=== PATIENT | male | born 1960 | race Caucasian/White ===

== ENCOUNTER 2021-02-16 09:58 | Emergency (ER) | payer OTHER, MEDICAID, SELFPAY ==
[2021-02-16] VITALS (8 sets, daily range): BP systolic 104–142; BP diastolic 68–77; PULSE 71–85; RESP 18–26; TEMP 36.8; O2SAT 93–97; BMI 33.9
--- NOTE | 2021-02-16 10:06 | DI.RAD.S_ITS ---
PROCEDURE: XR CHEST 2V INDICATIONS: cough, wheezing throughtout, sob TECHNIQUE: 2 views of the chest were acquired. COMPARISON: [facility], , CHEST 2 VIEW, 03/02/2016, 11:30. [facility], , CHEST 2 VIEW, 11/09/2015, 10:01. FINDINGS: Surgical changes and devices: None. Lungs and pleura: Lungs are abnormal with pulmonary hyperexpansion consistent with severe COPD. No pleural effusions or pneumothorax. Mediastinum: Mediastinal contours are normal. Heart size is normal. Bones and chest wall: No suspicious bony abnormalities. Soft tissues appear unremarkable. IMPRESSION: Chronic interstitial prominence, severe COPD, presumed longstanding smoking history. No pneumonia found. Dictated by: Johny Mon M.D. on 02/16/2021 at 10:57 Approved by: Johny Mon M.D. on 02/16/2021 at 10:57
--- NOTE | 2021-02-16 10:21 | ED.SOB ---
HPI - SOB/Dyspnea General Chief Complaint: Upper Respiratory Symptoms Stated Complaint: COUGH, CONGESTION, SOB, STARTED IN OCTOBER Time Seen by Provider: 02/16/21 10:09 History of Present Illness HPI Narrative: Patient is a 60-year-old male with history of COPD who continues to smoke presenting with persistent cough shortness of breath ongoing since October. He is unable to get into his primary care provider. He says that his symptoms have not gotten any worse a just are not getting any better. He continues to have tightness a productive cough. He denies any fever or chills. He does have some chest tightness as well. Related Data Home Medications Medication Instructions Recorded Confirmed Albuterol Sulfate/Ipratropium* 2 puff TID #0 10/10/11 (Combivent Inhaler) Previous Rx's Medication Instructions Recorded azithromycin 250 mg tablet 250 mg PO DAILY 5 Days tab 02/16/21 prednisone 10 mg tablet 10 mg PO DAILY #30 tab 02/16/21 Allergies Allergy/AdvReac Type Severity Reaction Status Date / Time doxycycline Allergy Unknown REACTION Verified 02/16/21 10:42 WITH SHELLEY SANCHEZ Review of Systems Review of Systems Narrative: GENERAL: Denies chills, fatigue, malaise, fever, sweats, travel HEENT: Denies sinus pain, ear pain, sore throat, difficulty swallowing, neck pain RESPIRATORY:See HPI CARDIOVASCULAR: Denies chest pain, palpitations, orthopnea, edema GASTROINTESTINAL: Denies nausea, vomiting, abdominal pain, diarrhea, constipation, melena. : Denies dysuria, frequency, incontinence, hematuria, urinary retention, flank pain. MUSCULOSKELETAL: Denies weakness, joint pain, or bony pain SKIN: No rash, no erythema, no pruritus NEUROLOGIC: Denies weakness, dizziness, headache, numbness, change in speech, confusion PSYCHIATRIC: No concerning psychosocial issues. 12 point review of systems is negative except for those stated above and HPI Patient History Social History Smoking Status: Current every day smoker Exam Initial Vital Signs Initial Vital Signs: Vital Signs Temperature 98.2 F 02/16/21 10:18 Pulse Rate 85 02/16/21 10:18 Respiratory Rate 18 02/16/21 10:18 Blood Pressure 142/77 H 02/16/21 10:18 Pulse Oximetry 97 02/16/21 10:18 GENERAL: alert 60-year-old male HEENT: Head atraumatic,EOMI, pupils reactive, face symmetric, [moist] mucous membranes CARDIOVASCULAR: Regular rate and rhythm without murmurs, rubs or gallops. RESPIRATORY: Coarse breath bilaterally with wheezing speaks in full sentences no acute respiratory distress ABDOMEN: Soft, nontender. Normoactive bowel sounds all 4 quadrants. No guarding or rebound. EXTREMITIES: Normal range of motion, no clubbing or edema. Neurovascularly intact NEUROLOGICAL: Alert and oriented x4.Normal gait and speech. SKIN: Warm, dry, no laceration, no petechiae, no rashes or lesions. Course Orders Ordered: ED Orders 02/16/21 10:06 XR chest 2V Stat 02/16/21 10:11 COVID19 -Nasal swab/Pre-Proc Stat 02/16/21 10:18 EKG-12 Lead Stat 02/16/21 10:34 Complete Blood Count AUTO DIFF Stat Comprehensive Metabolic Panel Stat Lipase Stat NT-proBNP (BNP-Adult 18+) Stat Troponin & CK Cardiac Panel Stat Discontinued Medications Albuterol (Albuterol 2.5 Mg/3 Ml Neb (Adult)) 2.5 mg INH NOW ONE Stop: 02/16/21 11:08 Last Admin: 02/16/21 11:11 Dose: 2.5 mg Documented by: JOSUE Albuterol/Ipratropium (Albuterol/Ipratropium 3 Ml Ampul) 3 ml INH NOW ONE Stop: 02/16/21 10:19 Last Admin: 02/16/21 10:58 Dose: 3 ml Documented by: JOSUE Methylprednisolone (Methylprednisolone 125 Mg/2 Ml Vial) 125 mg IV NOW ONE Stop: 02/16/21 10:19 Last Admin: 02/16/21 10:43 Dose: 125 mg Documented by: VANESSA Vital Signs Vital signs: Vital Signs - 8 hr 02/16/21 10:18 02/16/21 10:23 02/16/21 10:30 Temperature 98.2 F Pulse Rate 85 82 78 Respiratory Rate 18 18 25 H Blood Pressure 142/77 H 118/77 Pulse Oximetry 97 97 94 02/16/21 10:59 02/16/21 11:00 02/16/21 11:30 Temperature Pulse Rate 81 84 71 Respiratory Rate 26 H 23 22 Blood Pressure 104/70 Pulse Oximetry 94 96 93 02/16/21 12:00 02/16/21 12:30 Temperature Pulse Rate 74 75 Respiratory Rate 19 20 Blood Pressure 112/68 128/75 Pulse Oximetry 94 93 MDM - SOB/Dyspnea Lab Data Result diagrams: 02/16/21 10:34 02/16/21 10:34 Labs: Lab Results 02/16/21 02/16/21 02/16/21 Range/Units 10:11 10:34 10:34 WBC 5.9 (4.5-11.0) X10^3/uL RBC 4.43 L (4.5-5.9) X10^6/uL Hgb 15.1 (13.5-17.5) g/dL Hct 43.6 (41-53) % MCV 98.5 (80-100) fL MCH 34.0 (26-34) PG MCHC 34.5 (30-36) % RDW 13.0 (11.6-14.8) % Plt Count 260 (150-400) X10^3/uL Neut % (Auto) 52.1 (50-75) % Lymph % (Auto) 30.9 (25-40) % [place] % (Auto) 12.0 (3-14) % Eos % (Auto) 3.9 (2-4) % Baso % (Auto) 1.1 (0-2) % Neut # (Auto) 3100 (8992-3996) /uL Lymph # (Auto) 1800 (2797-5005) /uL Livingston # (Auto) 700 (0-900) /uL Eos # (Auto) 200 (0-450) /uL Baso # (Auto) 100 (0-100) /uL Sodium 135 L (137-145) mmol/L Potassium 4.8 (3.4-5.1) mmol/L Chloride 105 (98-107) mmol/L Carbon Dioxide 25 (22-32) mmol/L BUN 7 L (9-20) mg/dL Creatinine 0.70 (0.66-1.25) mg/dL Estimated GFR > 60.0 (>60) mL/min BUN/Creatinine Ratio 10.0 (6-22) Glucose 102 (80-110) mg/dL Calcium 9.3 (8.4-10.2) mg/dL Total Bilirubin 0.8 (0.2-1.3) mg/dL AST 32 (17-59) IU/L ALT 23 (<50) IU/L Alkaline Phosphatase 76 (38-126) U/L Total Creatine Kinase 216 H (55-170) U/L CK-MB (CK-2) 3.86 H (<2.37) ng/mL CK-MB (CK-2) Rel Index 1.8 (1.5-5.0) % Troponin I < 0.012 (0.01-0.034) ng/mL NT-Pro-B Natriuret Pep 109 (<125) pg/mL Total Protein 7.5 (6.3-8.2) g/dL Albumin 4.3 (3.5-5.0) g/dL Globulin 3.2 (1.7-4.1) g/dL Albumin/Globulin Ratio 1.3 (1.0-2.8) Lipase 86 (23-300) U/L SARS-CoV-2 (PCR) Negative (Negative) Imaging Data Chest x-ray: Radiologist's Impression: PROCEDURE: XR CHEST 2V INDICATIONS: cough, wheezing throughtout, sob TECHNIQUE: 2 views of the chest were acquired. COMPARISON: [facility], , CHEST 2 VIEW, 03/02/2016, 11:30. [facility], , CHEST 2 VIEW, 11/09/2015, 10:01. FINDINGS: Surgical changes and devices: None. Lungs and pleura: Lungs are abnormal with pulmonary hyperexpansion consistent with severe COPD. No pleural effusions or pneumothorax. Mediastinum: Mediastinal contours are normal. Heart size is normal. Bones and chest wall: No suspicious bony abnormalities. Soft tissues appear unremarkable. IMPRESSION: Chronic interstitial prominence, severe COPD, presumed longstanding smoking history. No pneumonia found. Dictated by: Johny Mon M.D. on 02/16/2021 at 10:57 ECG Data Interpretation: Normal sinus rhythm rate 76 p.r. interval 154 QRS [address] changes or T-wave inversions similar to prior EKG MDM Narrative Medical decision making narrative: Patient is overall feeling much better after DuoNebs and steroids. At this time does not need admission. Will put him on steroid taper and antibiotics. He is allergic to doxycycline so will put him on azithromycin. Overall does not appear septic. Discharge Plan Departure Patient Disposition: Home Clinical Impression: COPD exacerbation Instructions: Chronic Obstructive Pulmonary Disease Activity Restrictions/Additional Instructions: *You have been diagnosed with copd exacerbation *What to do: Hopefully start feeling better with steroids and antibiotics *Continue to take medications as directed Prednisone 40 mg for 3 days, 30 mg for 3 days, 20 mg for 3 days, 10 mg for 3 days Azithromycin take as directed *Follow up with your primary care provider in 2-3 days *Return to ER if you should have increasing shortness of breath, chest pain or any new, worsening or concerning symptoms Prescriptions: New prednisone 10 mg tablet 10 mg PO DAILY Qty: 30 RF: 0 azithromycin 250 mg tablet 250 mg PO DAILY 5 Days RF: 0 No Action Albuterol Sulfate/Ipratropium* (Combivent Inhaler) 2 puff TID Qty: 0 RF: 0 Referrals: Lidya Samson DO [Primary Care Provider] -
[2021-02-16 10:31] LABS: COVID19 -Nasal RAPID Negative (Negative)
[2021-02-16] MEDS: methylPREDNISolone 125 MG/2 ML VIAL IV (10:43)
[2021-02-16 10:52] LABS: Add Manual Diff / Slide Review NO; Basophils Absolute Auto 100 /uL (0-100); Basophils Percent Auto 1.1 % (0-2); Eosinophils Absolute Auto 200 /uL (0-450); Eosinophils Percent Auto 3.9 % (2-4); Hematocrit 43.6 % (41-53); Hemoglobin 15.1 g/dL (13.5-17.5); Lymphocytes Absolute Auto 1800 /uL (1100-4500); Lymphocytes Percent Auto 30.9 % (25-40); Mean Corpuscular HGB Conc 34.5 % (30-36); Mean Corpuscular Volume 98.5 fL (80-100); Monocytes Absolute Auto 700 /uL (0-900); Neutrophils Absolute Auto 3100 /uL (1500-7000); Neutrophils Percent Auto 52.1 % (50-75); Platelet Count 260 X10^3/uL (150-400); Red Blood Cell Count 4.43 X10^6/uL (4.5-5.9); White Blood Cell Count 5.9 X10^3/uL (4.5-11.0)
[2021-02-16 10:57] LABS: Alanine Aminotransferase 23 IU/L (<50); Albumin 4.3 g/dL (3.5-5.0); Albumin Globulin Ratio 1.3 (1.0-2.8); Alkaline Phosphatase 76 U/L (38-126); Aspartate Aminotransferase 32 IU/L (17-59); Bilirubin Total 0.8 mg/dL (0.2-1.3); Blood Urea Nitrogen 7 mg/dL (9-20); Calcium 9.3 mg/dL (8.4-10.2); Carbon Dioxide 25 mmol/L (22-32); Chloride 105 mmol/L (98-107); Creatine Kinase 216 U/L (55-170); Estimated Glomerular Filt Rate > 60.0 mL/min (>60); Globulin 3.2 g/dL (1.7-4.1); Glucose 102 mg/dL (80-110); Lipase 86 U/L (23-300); Potassium 4.8 mmol/L (3.4-5.1); Sodium 135 mmol/L (137-145); Total Protein 7.5 g/dL (6.3-8.2)
[2021-02-16 10:58] LABS: HEMOLYSIS 28 (0-50)
[2021-02-16] MEDS: ALBUTEROL/IPRATROPIUM 3 ML AMPUL INH (10:58)
[2021-02-16 11:09] LABS: NT-proBNP (BNP-Adult 18+) 109 pg/mL (<125); Troponin I < 0.012 ng/mL (0.01-0.034)
[2021-02-16] MEDS: ALBUTEROL 2.5 MG/3 ML NEB (ADULT) INH (11:11)
[2021-02-16 11:13] LABS: CKMB % Relative Index 1.8 % (1.5-5.0); Creatine Kinase MB 3.86 ng/mL (<2.37)
== END 2021-02-16 12:43 | disposition home or self-care (01) ==
PROVIDERS: Emergency Provider Emergency Medicine; Family Provider Family Medicine; PCP Family Medicine
DX: R06.02 Shortness of breath (principal); J44.1 Chronic obstructive pulmonary disease with (acute) exacerbation; Z20.822 Contact with and (suspected) exposure to COVID-19
CPT/HCPCS: 36415; 71046; 80053; 82550; 82553; 83690; 83880; 84484; 85025; 87635; 93005; 94640; 96374; 99284; C9803; J2930; J7613

== ENCOUNTER → 2023-03-23 16:51 | Outpatient (CLI) | payer OTHER, MEDICAID, SELFPAY ==
--- NOTE | 2023-03-23 16:54 | DI.RAD.S_ITS ---
PROCEDURE: XR CHEST 2V INDICATIONS: COPD TECHNIQUE: 2 views of the chest were acquired. COMPARISON: [facility], , XR CHEST 2V, 02/16/2021, 10:05. FINDINGS: Surgical changes and devices: None. Lungs and pleura: Lungs are clear. No pleural effusions or pneumothorax. Mediastinum: Mediastinal contours are normal. Heart size is normal. Bones and chest wall: No suspicious bony abnormalities. Soft tissues appear unremarkable. IMPRESSION: No acute disease Approved by: Janny Hoyt M.D. on 03/24/2023 at 10:45
[2023-03-23 17:22] LABS: Hematocrit 37.5 % (41-53); Hemoglobin 13.1 g/dL (13.5-17.5); Mean Corpuscular HGB Conc 34.8 % (30-36); Mean Corpuscular Hemoglobin 34.6 PG (26-34); Mean Corpuscular Volume 99.2 fL (80-100); Platelet Count 238 X10^3/uL (150-400); Red Blood Cell Count 3.77 X10^6/uL (4.5-5.9); Red Cell Distribution Width 12.1 % (11.6-14.8); White Blood Cell Count 5.3 X10^3/uL (4.5-11.0)
[2023-03-23 19:20] LABS: TSH w/ Reflex to FT4 2.41 uIU/mL (0.47-4.68)
[2023-03-23 20:11] LABS: Alanine Aminotransferase 42 IU/L (<50); Albumin 4.5 g/dL (3.5-5.0); Albumin Globulin Ratio 1.5 (1.0-2.8); Alkaline Phosphatase 63 U/L (38-126); Aspartate Aminotransferase 60 IU/L (17-59); BUN Creatinine Ratio 18.6 (6-22); Bilirubin Total 0.7 mg/dL (0.2-1.3); Blood Urea Nitrogen 16 mg/dL (9-20); Calcium 9.1 mg/dL (8.4-10.2); Carbon Dioxide 24 mmol/L (22-32); Chloride 102 mmol/L (98-107); Estimated Glomerular Filt Rate > 60 mL/min (>60); Glucose 95 mg/dL (80-110); HEMOLYSIS < 15 (0-50); Lipase 137 U/L (23-300); Potassium 4.4 mmol/L (3.4-5.1); Sodium 134 mmol/L (137-145); Total Protein 7.5 g/dL (6.3-8.2)
== END ==
PROVIDERS: Family Provider Family Medicine; PCP Internal Medicine; Referring Provider Internal Medicine; Visit Provider Internal Medicine
DX: J44.9 Chronic obstructive pulmonary disease, unspecified (principal); E78.2 Mixed hyperlipidemia; K52.9 Noninfective gastroenteritis and colitis, unspecified
CPT/HCPCS: 36415; 71046; 80053; 83690; 84443; 85027

== ENCOUNTER → 2023-03-25 10:35 | Outpatient (CLI) | payer OTHER, MEDICAID, SELFPAY ==
[2023-03-26 19:23] LABS: C difficie Toxins A and B, EIA Negative (Negative)
[2023-03-30 16:17] LABS: Calprotectin, Stool 7 ug/g (0-120)
== END ==
PROVIDERS: Family Provider Family Medicine; PCP Internal Medicine; Referring Provider Internal Medicine; Visit Provider Internal Medicine
DX: E78.2 Mixed hyperlipidemia (principal); K52.9 Noninfective gastroenteritis and colitis, unspecified
CPT/HCPCS: 83993; 87045; 87177; 87324; 87329; 87899

== ENCOUNTER → 2023-04-06 12:39 | Outpatient (CLI) | payer OTHER, MEDICAID, SELFPAY | PROVIDERS: Family Provider Family Medicine; PCP Internal Medicine; Referring Provider Internal Medicine; Visit Provider Internal Medicine | DX: J44.9 Chronic obstructive pulmonary disease, unspecified (principal); F17.200 Nicotine dependence, unspecified, uncomplicated | CPT/HCPCS: 94060; 94726; 94729 ==

== ENCOUNTER → 2023-05-24 11:56 | Outpatient (CLI) | payer OTHER, MEDICAID, SELFPAY ==
[2023-05-24 13:58] LABS: Hematocrit 37.7 % (41-53); Hemoglobin 13.1 g/dL (13.5-17.5); Mean Corpuscular HGB Conc 34.8 % (30-36); Mean Corpuscular Hemoglobin 34.1 PG (26-34); Platelet Count 256 X10^3/uL (150-400); Red Blood Cell Count 3.85 X10^6/uL (4.5-5.9); Red Cell Distribution Width 11.8 % (11.6-14.8); White Blood Cell Count 5.2 X10^3/uL (4.5-11.0)
[2023-05-24 14:49] LABS: HEMOLYSIS < 15 (0-50); Iron 159 ug/dL (49-181)
[2023-05-24 14:59] LABS: Percent Iron Saturation 42 % (20-50); Total Iron Binding Capacity 383 ug/dL (261-462); Transferrin 270 mg/dL (206-381)
[2023-05-24 15:18] LABS: Ferritin 77 ng/mL (18-464)
== END ==
PROVIDERS: Family Provider Family Medicine; PCP Internal Medicine; Referring Provider Internal Medicine; Visit Provider Internal Medicine
DX: D64.9 Anemia, unspecified (principal)
CPT/HCPCS: 36415; 82728; 83540; 83550; 85027

== ENCOUNTER 2023-06-07 11:50 | Day surgery (SDC) | payer OTHER, MEDICAID, SELFPAY ==
--- NOTE | 2023-06-07 | PATH_ITS ---
[facility] Accession Number: [id number] No. of containers..02 Tissue . 01 Material submitted: . PART A: colon - RANDOM COLON PART B: colon - DESCENDING COLON POLYP . 01 Diagnosis: A. Random Colon, Biopsies: Colonic mucosa with no diagnostic abnormality. Negative for active, chronic, and microscopic colitis. Negative for dysplasia and malignancy. . B. Descending Colon, Polyp: Tubular adenoma. MRV 06/14/2023 1359 Local . 01 Electronically signed: . Linda Olivares MD, Pathologist NPI- [id number] . 01 Gross description: . Part A: RANDOM COLON: Received in formalin is multiple fragment(s) of pulliam, soft tissue measuring 1.0 x 0.6 x 0.1 cm in aggregate submitted entirely in 1 cassette(s) Part B: DESCENDING COLON POLYP: Received in formalin is 1 fragment(s) of pulliam, soft tissue measuring 0.4 x 0.3 x 0.2 cm submitted entirely in 1 cassette(s) /AAY 06/08/2023 0341 Local . 01 Pathologist provided ICD-10: D12.4 . 01 CPT . 887516, [id number] Specimen Comment: A courtesy copy of this report has been sent to [phone] Performed at: 01 [facility] [address] [place] [address], [place], [place] [id number] MD Fernando Moreno MD Phone: [phone]
[2023-06-07] MEDS: LACTATED RINGERS 1,000 ML 42 ML IV (12:27)
[2023-06-07 12:29] VITALS: BP 156/98; PULSE 74; RESP 16; TEMP 36.5; O2SAT 98; BMI 34.2
--- NOTE | 2023-06-07 12:40 | PM.HP.1 ---
History of Present Illness History of Present Illness Date Patient Seen: 06/07/23 Chief complaint: Dx Colonoscopy w/poss bx Narrative: 62-year-old man last colonoscopy perhaps 5 years ago. Here today for diagnostic colonoscopy is secondary to chronic nonbloody diarrhea for several months. He thinks that his mother might have had colon cancer. [facility] Medical History Plantar warts Eczema Shoulder pain Foot pain Measles (~1967) History of urinary incontinence Irritable bowel syndrome Prurigo nodularis History of alcohol use disorder Tobacco use disorder Cervical spinal stenosis Chronic low back pain Obesity (BMI 30.0-34.9) History of colonic polyps Chronic diarrhea COPD (chronic obstructive pulmonary disease) Mixed hyperlipidemia Family History Father Cancer Mother Cancer Brother Cancer Brother Cancer Sister Eczema Social History details: Single, no children, recycling work household members: none Smoking Status: Never smoker alcohol intake: current Meds Home Medications and Allergies Home Medications Medication Instructions Recorded Confirmed Type atorvastatin 20 mg tablet 20 mg PO DAILY 03/23/23 06/07/23 History torsemide 20 mg tablet 20 mg PO DAILY 03/23/23 06/07/23 History albuterol sulfate 90 mcg/actuation 1 puff inhalation Q4-6H PRN 05/24/23 06/07/23 Rx aerosol inhaler shortness of breath or wheezing #8.5 grams fluticasone 250 mcg-salmeterol 50 1 inh inhalation BID #60 ea 05/24/23 06/07/23 Rx mcg/dose blistr powdr for inhalation (Advair Diskus) ipratropium 0.5 mg-albuterol 3 mg 3 ml inhalation 4XD wheezing #180 05/24/23 06/07/23 Rx (2.5 mg base)/3 mL nebulization mL soln ipratropium 20 mcg-albuterol 100 1 - 2 puff inhalation 4XD #4 grams 05/24/23 06/07/23 Rx mcg/actuation mist for inhalation (Combivent Respimat) Allergies Allergy/AdvReac Type Severity Reaction Status Date / Time doxycycline AdvReac Unknown REACTION Verified 06/07/23 12:23 WITH SUN, RASH Exam Vital Signs (past 8 hours): - 06/07/23 12:29 Temperature 97.7 F Pulse Rate 74 Respiratory Rate 16 Blood Pressure 156/98 H Pulse Oximetry 98 Oxygen Delivery Method Room Air Oxygen Delivery Method Room Air Narrative Exam Narrative: General adult man alert oriented no acute distress Chest nonlabored respiration Extremities warm well perfused Assessment & Plan Assessment and plan (1) Chronic diarrhea: Status: Acute Assessment & Plan narrative: 62-year-old man with chronic diarrhea here for diagnostic colonoscopy. Technical details were discussed. Risks, benefits, alternatives explained. Risks including but not limited to myocardial infarction, aspiration, bleeding, pain, missed lesion, incomplete examination, need for further radiographic studies, colonic perforation, and need for major abdominal surgery were discussed. All questions were answered to their satisfaction, and they are in agreement with this plan.
[2023-06-07 13:06] VITALS: BP 147/81; PULSE 89; RESP 15; TEMP 36.3; O2SAT 91
--- NOTE | 2023-06-07 13:10 | SUR.PHASEI ---
Patient arrived with oral airway in which he was drowsily attempting to remove. Bloody drainage noted on face and pillow but no active bleeding. Airway removed, patient cleaned.
[2023-06-07 13:11] VITALS: BP 118/71; PULSE 86; RESP 14; O2SAT 95
--- NOTE | 2023-06-07 13:12 | P.OP.COLON_ITS ---
Operative Date/Time/Diagnoses Date of procedure: 06/07/23 Time of procedure: 13:12 Pre-op diagnosis: Chronic diarrhea Procedure & Clinicians Study performed: Colonoscopy Same procedure as scheduled: Yes Indications: 62-year-old man with chronic diarrhea here for diagnostic colonoscopy Surgeon: Sorin Woody Procedure Notes Procedure in detail: The history and physical was performed/updated and the patient is ASA class is 2. The procedure was discussed in detail with the patient. Potential risks complications including infection, bleeding, missed diagnosis, perforation, need for surgery, and were explained. Their questions were answered and informed consent was obtained. Patient was brought to the procedure room and placed standard monitoring equipment. The patient's vital signs were monitored continuously throughout the entire procedure. Prior to starting time-out was performed. The patient was placed in the left lateral recumbent position. Procedural sedation was administered by anesthesia. Examination began with a thorough inspection of the perianal area there was no evidence of fissures, fistulae, external hemorrhoids or cutaneous malignancy. The colonoscopy scope was then placed into the anal canal and was advanced to the cecum, which was identified by the ileocecal valve, the appendiceal orifice and the confluence of the taenia. The scope was then slowly withdrawn examining colon thoroughly in all directions, irrigating it of any residual stool. The scope was retroflexed within the rectum The patient tolerated the procedure well. They will be discharged once criteria are met. The prep was of fair quality. The withdrawl time was 8 minutes. FINDINGS * Entirety of colon contains thick green bubbly content which is sent for culture * Descending colon-5 mm polyp removed with biopsy forceps Specimen(s): other (Colonic aspirate, descending colonic polyp) Impression: Colonic polyp Post-procedure Plan for aftercare: Will notify with results of culture and biopsy Disposition: same day surgery
[2023-06-07 13:15] VITALS: BP 127/69; PULSE 80; RESP 16; TEMP 36.4; O2SAT 96
[2023-06-07 13:18] VITALS: BP 127/69; PULSE 79; RESP 14; O2SAT 96
[2023-06-07 13:30] VITALS: BP 128/72; PULSE 72; RESP 16; O2SAT 99
--- NOTE | 2023-06-07 13:37 | SUR.PHASEII ---
Pt has to wait on his ride to get here. He is going to be a bit late. Pt is ready to go home and is just waiting on ride. Pt denies pain and nausea.
== END 2023-06-07 13:50 | disposition home or self-care (01) ==
PROVIDERS: Family Provider Family Medicine; PCP Internal Medicine; Referring Provider Surgery; Visit Provider Surgery
PROC: 0DJD8ZZ Inspection of Lower Intestinal Tract, Via Natural or Artificial Opening Endoscopic (ICD-10-PCS; CPT 45378; principal; 2023-06-07 13:30)
DX: R19.7 Diarrhea, unspecified (principal); D12.4 Benign neoplasm of descending colon
CPT/HCPCS: 45380; 87177; J2704

== ENCOUNTER → 2023-09-05 11:05 | Outpatient (CLI) | payer OTHER, MEDICAID, SELFPAY ==
[2023-09-05 12:41] LABS: Hematocrit 38.9 % (41-53); Hemoglobin 13.6 g/dL (13.5-17.5); Mean Corpuscular Hemoglobin 34.8 PG (26-34); Mean Corpuscular Volume 99.6 fL (80-100); Platelet Count 275 X10^3/uL (150-400); Red Blood Cell Count 3.91 X10^6/uL (4.5-5.9); Red Cell Distribution Width 12.7 % (11.6-14.8); White Blood Cell Count 5.1 X10^3/uL (4.5-11.0)
[2023-09-05 13:38] LABS: Alanine Aminotransferase 22 IU/L (<50); Albumin 4.4 g/dL (3.5-5.0); Albumin Globulin Ratio 1.4 (1.0-2.8); Alkaline Phosphatase 58 U/L (38-126); Aspartate Aminotransferase 28 IU/L (17-59); BUN Creatinine Ratio 10.7 (6-22); Bilirubin Total 0.8 mg/dL (0.2-1.3); Blood Urea Nitrogen 9 mg/dL (9-20); Calcium 9.6 mg/dL (8.4-10.2); Carbon Dioxide 28 mmol/L (22-32); Chloride 101 mmol/L (98-107); Cholesterol 212 mg/dL (140-199); Estimated Glomerular Filt Rate > 60 mL/min (>60); Globulin 3.1 g/dL (1.7-4.1); Glucose 95 mg/dL (80-110); HDL Cholesterol 42 mg/dL (40-60); HEMOLYSIS < 15 (0-50); LDL Cholesterol Calculated 109 mg/dL (<100); Potassium 4.2 mmol/L (3.4-5.1); Sodium 136 mmol/L (137-145); Total Protein 7.5 g/dL (6.3-8.2); Triglycerides 307 mg/dL (35-150)
[2023-09-05 14:07] LABS: Prostate Specific Antigen Scrn 0.446 ng/mL (0.1-4.0)
[2023-09-05 14:25] LABS: Vitamin B12 342 pg/mL (239-931)
== END ==
PROVIDERS: Family Provider Family Medicine; PCP Internal Medicine; Referring Provider Internal Medicine; Visit Provider Internal Medicine
DX: I10 Essential (primary) hypertension (principal); D64.9 Anemia, unspecified; E78.2 Mixed hyperlipidemia; E53.8 Deficiency of other specified B group vitamins; Z12.5 Encounter for screening for malignant neoplasm of prostate
CPT/HCPCS: 36415; 80053; 80061; 82607; 85027; G0103

== ENCOUNTER → 2024-10-22 13:47 | Outpatient (CLI) | payer MEDICARE, OTHER, SELFPAY ==
[2024-10-22 14:25] LABS: Hematocrit 39.8 % (41-53); Hemoglobin 13.7 g/dL (13.5-17.5); Mean Corpuscular HGB Conc 34.4 % (30-36); Mean Corpuscular Hemoglobin 33.7 PG (26-34); Platelet Count 273 X10^3/uL (150-400); Red Blood Cell Count 4.06 X10^6/uL (4.5-5.9); Red Cell Distribution Width 12.2 % (11.6-14.8); White Blood Cell Count 5.5 X10^3/uL (4.5-11.0)
[2024-10-22 14:41] LABS: Alanine Aminotransferase 37 IU/L (<50); Albumin 4.6 g/dL (3.5-5.0); Albumin Globulin Ratio 1.6 (1.0-2.8); Alkaline Phosphatase 63 U/L (38-126); Aspartate Aminotransferase 40 IU/L (17-59); BUN Creatinine Ratio 15.3 (6-22); Bilirubin Total 0.5 mg/dL (0.2-1.3); Blood Urea Nitrogen 15 mg/dL (9-20); Carbon Dioxide 30 mmol/L (22-32); Chloride 101 mmol/L (98-107); Cholesterol 260 mg/dL (140-199); Estimated Glomerular Filt Rate > 60 mL/min (>60); Globulin 2.8 g/dL (1.7-4.1); Glucose 105 mg/dL (80-110); HDL Cholesterol 54 mg/dL (40-60); HEMOLYSIS < 15 (0-50); LDL Cholesterol Calculated 151 mg/dL (<100); Sodium 137 mmol/L (137-145); Total Protein 7.4 g/dL (6.3-8.2); Triglycerides 275 mg/dL (35-150)
[2024-10-22 14:42] LABS: Potassium 5.5 mmol/L (3.4-5.1)
[2024-10-22 15:12] LABS: Prostate Specific Antigen 0.354 ng/mL (0.10-4.00)
[2024-10-22 15:13] LABS: TSH w/ Reflex to FT4 2.11 uIU/mL (0.47-4.68)
[2024-10-22 15:31] LABS: Vitamin B12 Reflex MMA if <400 275 pg/mL (239-931)
== END ==
PROVIDERS: PCP Internal Medicine; Referring Provider Internal Medicine; Visit Provider Internal Medicine
DX: N13.8 Other obstructive and reflux uropathy (principal); E78.2 Mixed hyperlipidemia; N40.1 Benign prostatic hyperplasia with lower urinary tract symptoms; I10 Essential (primary) hypertension; K52.9 Noninfective gastroenteritis and colitis, unspecified; E53.8 Deficiency of other specified B group vitamins
CPT/HCPCS: 36415; 80053; 80061; 82607; 83921; 84153; 84443; 85027

== ENCOUNTER 2025-01-27 10:21 | Emergency (ER) | payer MEDICARE, MEDICAID, SELFPAY ==
[2025-01-27] VITALS (9 sets, daily range): BP systolic 153–155; BP diastolic 72–92; PULSE 88–106; RESP 18–20; TEMP 36.8; O2SAT 95–98; BMI 40.4
--- NOTE | 2025-01-27 10:31 | DI.RAD.S_ITS ---
PROCEDURE: XR ANKLE LT MIN 3V INDICATIONS: injury TECHNIQUE: 3 views of the ankle were acquired. COMPARISON: None. FINDINGS AND IMPRESSION: Fracture dislocation of the ankle, with moderately displaced lateral malleolus fracture at and above the syndesmosis, medial malleolus fracture, minimally displaced posterior malleolus fracture. Significant medial gutter widening and mild syndesmotic widening. Diffuse soft tissue swelling. Plantar and calcaneal enthesopathy Dictated by: Ruddy Thompson M.D. on 01/27/2025 at 11:08 Approved by: Ruddy Thompson M.D. on 01/27/2025 at 11:09
--- NOTE | 2025-01-27 10:46 | PC.NURSE ---
Pt states he swung his leg over to get out of bed and states it got caught up on bedside table and pt tripped from this stating right arm hit wall and left ankle got twisted up. Reports left ankle pain and hearing crunching in left ankle. Left ankle appears edematous; pt reports he retains fluid in his lower extremities (compression socks in place). Pedal pulses 2+. 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
--- NOTE | 2025-01-27 12:13 | PM.HP.IH.1 ---
History of Present Illness History of Present Illness Date Patient Seen: 01/27/25 Date of Onset of Symptoms: 01/27/25 Chief complaint: L Ankle Injury Narrative: 64yo M with PMH of COPD, HTN, HLD, Obesity, Diverticulitis, and cervical spine stenosis who presents to the ED with acute LEFT ankle pain. He reports that he was attempting to get out of bed and got his foot caught on a side table. He twisted his ankle and fell to the ground. He had immediate pain and deformity of the ankle. He was unable to ambulate. He was brought in by ambulence by his brother. No prior injuries to this ankle. He did have a recent procedure on his toe nails. SInce that procedure he has had dullness about the foot. [facility] Medical History (Updated 01/27/25 @ 14:15 by Suellen Issa MD) Venous (peripheral) insufficiency Ingrown toenail Essential tremor Anemia Essential hypertension Plantar warts Eczema Measles (~1966) History of urinary incontinence Irritable bowel syndrome Prurigo nodularis History of alcohol use disorder Tobacco use disorder Cervical spinal stenosis Chronic low back pain Obesity (BMI 30.0-34.9) History of colonic polyps Chronic diarrhea COPD (chronic obstructive pulmonary disease) Mixed hyperlipidemia Family History Father Cancer Mother Cancer Brother Cancer Brother Cancer Sister Eczema Social History details: Single, no children, recycling work household members: none Smoking Status: Former smoker alcohol intake: current Meds Home Medications and Allergies Home Medications ?Medication ?Instructions ?Recorded ?Confirmed ?Type atorvastatin 20 mg tablet 20 mg PO DAILY 03/23/23 01/03/25 History ipratropium 0.5 mg-albuterol 3 mg 3 ml inhalation 4XD wheezing #180 05/24/23 01/03/25 Rx (2.5 mg base)/3 mL nebulization mL soln loratadine 10 mg tablet 10 mg PO DAILY PRN itchy eyes #90 10/01/24 01/03/25 Rx tabs albuterol sulfate 90 mcg/actuation 1 puff inhalation Q4-6H PRN 10/11/24 01/03/25 Rx aerosol inhaler shortness of breath or wheezing #8.5 grams fluticasone 250 mcg-salmeterol 50 1 inh inhalation BID #60 ea 11/05/24 01/03/25 Rx mcg/dose blistr powdr for inhalation (Advair Diskus) ipratropium 20 mcg-albuterol 100 1 - 2 puff inhalation TID #4 grams 11/05/24 01/03/25 Rx mcg/actuation mist for inhalation (Combivent Respimat) diphenoxylate-atropine 2.5 1 tab PO TID PRN diarrhea #60 tabs 12/31/24 01/03/25 Rx mg-0.025 mg tablet (Lomotil) chlorthalidone 25 mg tablet 25 mg PO DAILY #90 tabs 01/03/25 01/03/25 Rx carvedilol 3.125 mg tablet 3.125 mg PO BID #180 tabs 01/24/25 Rx hydrocodone 5 mg-acetaminophen 325 1 tab PO Q8H PRN pain #14 tabs 01/27/25 Rx mg tablet Allergies Allergy/AdvReac Type Severity Reaction Status Date / Time doxycycline AdvReac Severe REACTION Verified 01/27/25 10:29 WITH SUN, RASH Exam Vital Signs (past 8 hours): - 01/27/25 10:29 Temperature 98.2 F Pulse Rate 100 H Respiratory Rate 20 Blood Pressure 155/72 H Pulse Oximetry 98 Oxygen Delivery Method Room Air Oxygen Delivery Method Room Air Narrative Exam Narrative: LEFT Ankle: Mild deformity. No breaks in the skin. Fires TA, EHL and gastroc. SILT in S/S/DP/P/N distribution however it is diminished in the DP/P nerve distribution. Objective Labs 01/27/25 12:18 01/27/25 12:18 Assessment & Plan Assessment and plan (1) Fracture of ankle, trimalleolar, left, closed: Qualifiers: Encounter type: initial encounter Qualified Code(s): S82.852A - Displaced trimalleolar fracture of left lower leg, initial encounter for closed fracture Status: Acute Assessment & Plan narrative: 64yo M with PMH of COPD, HTN, HLD, Obesity, Diverticulitis, and cervical spine stenosis who presents to the ED with an left trimalleolar ankle fracture. I explained to the patient that this is an unstable ankle fracture that will require surgical management. Given the displacement of the ankle, he was consented for a intra-articular injection of 10cc of lidocaine plain, closed reduction and splinting. Skin was cleaned with chloroprep, 21g needle was then placed in the medial joint and 10 cc of lidocaine was injected. After 5 minutes, he was then placed in a splint with a stockingnet, webril and plaster. His ankle was then reduced in the splint with a medial directed force. This position was then held until the splint was hard. He tolerated the procedure well. After lengthy discussion, the patient acknowledges understanding of the risks, benefits and alternatives of surgery as well as the realistic and expected outcomes of surgery including rehabilitation. The risks of surgery included, but were not limited to, bleeding, pain, infection, need for repeat procedures, weakness, stiffness, failure to relieve symptoms, damage to surrounding nerves, tendons, blood vessels, cartilage or bone, malunion, nonunion, symptomatic hardware, DVT, PE, failure to return to previous level of function, complications of anesthesia, loss of limb or life. Informed consent for the above procedure was discussed with the patient in detail and the appropriate paperwork was signed. The patient, after having all questions answered, desired to proceed with surgical management. DVT Prophylaxis will be ASA for 6 weeks post op. The patient will return to clinic for a preoperative appointment. Robert Samuel MD Ortho Time-Based Coding :: 45-60 minutes spent with patient and on the chart (including review of chart, obtaining history, exam, reviewing outside data, placing orders, documenting exam, close reduction, splinting and treatment plan, and counseling patient) on 01/27/25. [employer] Document charge(s): No
[2025-01-27] MEDS: KETOROLAC 30 MG/ML VIAL 15 MG IV (12:14)
[2025-01-27] MEDS: MORPHINE 4 MG/ML INJ IV (12:15)
[2025-01-27] MEDS: LIDOCAINE 1% 20 ML 10 ML INJ (12:19)
[2025-01-27 12:30] LABS: Add Manual Diff / Slide Review NO; Basophils Absolute Auto 100 /uL (0-100); Basophils Percent Auto 1.1 % (0-2); Eosinophils Absolute Auto 100 /uL (0-450); Eosinophils Percent Auto 1.4 % (2-4); Hematocrit 39.9 % (41-53); Hemoglobin 14.2 g/dL (13.5-17.5); Lymphocytes Absolute Auto 1500 /uL (1100-4500); Lymphocytes Percent Auto 22.8 % (25-40); Mean Corpuscular HGB Conc 35.5 % (30-36); Mean Corpuscular Hemoglobin 34.6 PG (26-34); Mean Corpuscular Volume 97.7 fL (80-100); Monocytes Absolute Auto 900 /uL (0-900); Monocytes Percent Auto 13.3 % (3-14); Neutrophils Absolute Auto 4200 /uL (1500-7000); Neutrophils Percent Auto 61.4 % (50-75); Platelet Count 245 X10^3/uL (150-400); Red Blood Cell Count 4.09 X10^6/uL (4.5-5.9); Red Cell Distribution Width 12.1 % (11.6-14.8); White Blood Cell Count 6.8 X10^3/uL (4.5-11.0)
[2025-01-27 12:39] LABS: Alanine Aminotransferase 36 IU/L (<50); Albumin 4.5 g/dL (3.5-5.0); Albumin Globulin Ratio 1.4 (1.0-2.8); Alkaline Phosphatase 66 U/L (38-126); Aspartate Aminotransferase 40 IU/L (17-59); BUN Creatinine Ratio 15.5 (6-22); Bilirubin Total 1.9 mg/dL (0.2-1.3); Blood Urea Nitrogen 13 mg/dL (9-20); Carbon Dioxide 25 mmol/L (22-32); Chloride 95 mmol/L (98-107); Estimated Glomerular Filt Rate > 60 mL/min (>60); Globulin 3.3 g/dL (1.7-4.1); Glucose 104 mg/dL (70-99); HEMOLYSIS 18 (0-50); Potassium 3.7 mmol/L (3.4-5.1); Sodium 130 mmol/L (137-145); Total Protein 7.8 g/dL (6.3-8.2)
--- NOTE | 2025-01-27 12:56 | DI.CT.S_ITS ---
PROCEDURE: CT LE LT W CON INDICATIONS: post reduction trimalleolar fx TECHNIQUE: Noncontrast 3-mm axial sections acquired from the distal tibial shaft to the talar dome, with coronal and sagittal reformats.. COMPARISON: [facility], CR, XR ANKLE LT MIN 3V, 01/27/2025, 10:40. FINDINGS: Image quality: Diagnostic Bones: Improved alignment of the trimalleolar fracture, with mildly displaced lateral malleolus, medial malleolus, and posterior malleolus bone fragments. There are background degenerative changes Plantar calcaneal enthesopathy. Small bone fragment also seen at the tibial plafond at the syndesmosis. Soft tissues: Diffuse soft tissue swelling. Cast material in place. IMPRESSION: Improved alignment of the trimalleolar ankle fracture. Cast material in place. Dictated by: Ruddy Thompson M.D. on 01/27/2025 at 13:54 Approved by: Ruddy Thompson M.D. on 01/27/2025 at 13:56
--- NOTE | 2025-01-27 14:01 | ED.LOWEXIN ---
HPI - Extremity Injury (Lower) General Chief Complaint: Extremity Injury, Lower Stated Complaint: L Ankle Injury Time Seen by Provider: 01/27/25 11:21 Source: patient Mode of arrival: Wheelchair History of Present Illness HPI Narrative: 64-year-old male presents to ED with acute left ankle pain and not able to bear weight. This morning when getting out of bed he swung his left foot around, got it caught on the low-lying coffee table next to his bed causing him to fall. No other injuries today concerns. He has history of COPD and hypertension, tobacco use. Not anticoagulated Related Data Home Medications ?Medication ?Instructions ?Recorded ?Confirmed atorvastatin 20 mg tablet 20 mg PO DAILY 03/23/23 01/03/25 Previous Rx's ?Medication ?Instructions ?Recorded ipratropium 0.5 mg-albuterol 3 mg 3 ml inhalation 4XD wheezing #180 05/24/23 (2.5 mg base)/3 mL nebulization mL soln loratadine 10 mg tablet 10 mg PO DAILY PRN itchy eyes #90 10/01/24 tabs albuterol sulfate 90 mcg/actuation 1 puff inhalation Q4-6H PRN 10/11/24 aerosol inhaler shortness of breath or wheezing #8.5 grams fluticasone 250 mcg-salmeterol 50 1 inh inhalation BID #60 ea 11/05/24 mcg/dose blistr powdr for inhalation (Advair Diskus) ipratropium 20 mcg-albuterol 100 1 - 2 puff inhalation TID #4 grams 11/05/24 mcg/actuation mist for inhalation (Combivent Respimat) diphenoxylate-atropine 2.5 1 tab PO TID PRN diarrhea #60 tabs 12/31/24 mg-0.025 mg tablet (Lomotil) chlorthalidone 25 mg tablet 25 mg PO DAILY #90 tabs 01/03/25 carvedilol 3.125 mg tablet 3.125 mg PO BID #180 tabs 01/24/25 hydrocodone 5 mg-acetaminophen 325 1 tab PO Q8H PRN pain #14 tabs 01/27/25 mg tablet Allergies Allergy/AdvReac Type Severity Reaction Status Date / Time doxycycline AdvReac Severe REACTION Verified 01/27/25 10:29 WITH SUN, RASH Review of Systems Review of Systems Narrative: Pertinent ROS obtained and negative except as stated in HPI Patient History Medical History (Updated 01/27/25 @ 14:15 by Suellen Issa MD) Venous (peripheral) insufficiency Ingrown toenail Essential tremor Anemia Essential hypertension Plantar warts Eczema Measles (~1967) History of urinary incontinence Irritable bowel syndrome Prurigo nodularis History of alcohol use disorder Tobacco use disorder Cervical spinal stenosis Chronic low back pain Obesity (BMI 30.0-34.9) History of colonic polyps Chronic diarrhea COPD (chronic obstructive pulmonary disease) Mixed hyperlipidemia Family History Father Cancer Mother Cancer Brother Cancer Brother Cancer Sister Eczema Social History details: Single, no children, recycling work household members: none Smoking Status: Former smoker alcohol intake: current Smoking Status: Former smoker alcohol intake frequency: 0-2 drinks per day Alcohol type: beer Exam Initial Vital Signs Initial Vital Signs: Vital Signs Temperature 98.2 F 01/27/25 10:29 Pulse Rate 100 H 01/27/25 10:29 Respiratory Rate 20 01/27/25 10:29 Blood Pressure 155/72 H 01/27/25 10:29 Pulse Oximetry 98 01/27/25 10:29 Oxygen Delivery Method Room Air 01/27/25 10:29 Constitutional: 64-year-old male resting on the cot, well-appearing in no acute distress Head: NCAT Cardiovascular: Regular rate Pulmonary: no respiratory distress Abdominal: soft, non-tender Extremities: There is circumferential left ankle swelling and diffuse tenderness. Normal capillary refill, foot is warm. Sensation intact to light touch. Range of motion limited due to pain. No bony tenderness of the knee or hip. Skin: warm and dry, no diaphoresis Neurological: Alert and oriented x3 Course Orders Ordered: Discontinued Medications Hydrocodone Bitart/Acetaminophen (Hydrocodone/Acet 5/325 Tablet) 1 tab PO NOW ONE Stop: 01/27/25 14:13 Last Admin: 01/27/25 14:38 Dose: 1 tab Documented By: JOHANNA Ketamine HCl (Ketamine 500 Mg/5 Ml Inj) 260 mg IV NOW ONE Stop: 01/27/25 11:30 Last Admin: 01/27/25 12:15 Dose: Not Given Documented By: JOHANNA Ketorolac Tromethamine (Ketorolac 30 Mg/Ml Vial) 15 mg IV NOW ONE Stop: 01/27/25 11:28 Last Admin: 01/27/25 12:14 Dose: 15 mg Documented By: JOHANNA Lidocaine HCl (Lidocaine 1% 20 Ml) 10 ml INJ INTRA-OP ONE Stop: 01/27/25 12:03 Last Admin: 01/27/25 12:19 Dose: 10 ml Documented By: JOHANNA Morphine Sulfate (Morphine 4 Mg/Ml Inj) 4 mg IV NOW ONE Stop: 01/27/25 11:28 Last Admin: 01/27/25 12:15 Dose: 4 mg Documented By: JOHANNA Vital Signs Vital signs: Vital Signs - 8 hr 01/27/25 10:29 01/27/25 10:29 01/27/25 10:30 Temperature 98.2 F Pulse Rate 100 H 106 H Respiratory Rate 20 Blood Pressure 155/72 H 155/72 H Pulse Oximetry 98 96 Oxygen Delivery Method Room Air 01/27/25 10:30 01/27/25 11:00 01/27/25 11:30 Temperature Pulse Rate 104 H 92 H 88 Respiratory Rate Blood Pressure Pulse Oximetry 96 95 95 Oxygen Delivery Method 01/27/25 12:00 Temperature Pulse Rate 88 Respiratory Rate Blood Pressure Pulse Oximetry 97 Oxygen Delivery Method MDM - Extremity Injury (Lower) Medical Records Medical records narrative: In brief, this is a 64-year-old male with history of COPD and hypertension, tobacco use, daily EtOH, here with acute left ankle pain and swelling after a mechanical fall that occurred early this morning. On arrival to the emergency department, the patient is hypertensive, afebrile, slightly tachycardic in no acute distress. There is swelling and pain of the left ankle as described above. No apparent neurovascular deficit. Exam is highly suspicious for fracture Initial treatment plan includes: IV morphine, IV Toradol, x-ray of the ankle Laboratories pertinent for: No leukocytosis, no anemia, chronic hyponatremia although a bit lower than baseline today at 130.. Patient does have history of alcohol use disorder. Normal LFTs, bilirubin is elevated but no right upper quadrant pain Imaging pertinent for: X-ray initially shows trimalleolar fracture. Spoke with regional engagement consultant Dr. Samuel regarding plans for procedural sedation and reduction. Dr. Samuel is nearby and plans to come in for reduction himself with intra-articular lidocaine. On reassessment after reduction the patient is resting comfortably with his family and friends at the bedside. We discussed CT findings which show improved alignment after reduction. He reports his pain is coming back a bit. After splint is applied he is neurovascular intact. One second capillary refill and sensation intact to light touch across the toes. We discussed pain management at home and did offer for short course of oral narcotic to use but did caution him and his friends extensively regarding importance of not combining opioid pain medication with EtOH. He tells me that he plans to quit drinking completely. He tells me that he has quit successfully before, typically drinks 3 beers a night, has not had withdrawal symptoms in the past. No history of withdrawal seizures. I expressed that if he does choose to drink to not take the opioid pain medication and also that if he is having withdrawal symptoms that are significant he may come to the emergency department for assistance Return precautions discussed and provided prior to discharge. He is referred to the orthopedic office to arrange for surgery Lab Data 01/27/25 12:18 01/27/25 12:18 Labs: Lab Results 01/27/25 Range/Units 12:18 WBC 6.8 (4.5-11.0) X10^3/uL RBC 4.09 L (4.5-5.9) X10^6/uL Hgb 14.2 (13.5-17.5) g/dL Hct 39.9 L (41-53) % MCV 97.7 (80-100) fL MCH 34.6 H (26-34) PG MCHC 35.5 (30-36) % RDW 12.1 (11.6-14.8) % Plt Count 245 (150-400) X10^3/uL Neut % (Auto) 61.4 (50-75) % Lymph % (Auto) 22.8 L (25-40) % [place] % (Auto) 13.3 (3-14) % Eos % (Auto) 1.4 L (2-4) % Baso % (Auto) 1.1 (0-2) % Neut # (Auto) 4200 (7600-7337) /uL Lymph # (Auto) 1500 (6667-4206) /uL [place] # (Auto) 900 (0-900) /uL Eos # (Auto) 100 (0-450) /uL Baso # (Auto) 100 (0-100) /uL Sodium 130 L (137-145) mmol/L Potassium 3.7 (3.4-5.1) mmol/L Chloride 95 L (98-107) mmol/L Carbon Dioxide 25 (22-32) mmol/L BUN 13 (9-20) mg/dL Creatinine 0.84 (0.66-1.25) mg/dL Estimated GFR > 60 (>60) mL/min BUN/Creatinine Ratio 15.5 (6-22) Glucose 104 H (70-99) mg/dL Calcium 9.0 (8.4-10.2) mg/dL Total Bilirubin 1.9 H (0.2-1.3) mg/dL AST 40 (17-59) IU/L ALT 36 (<50) IU/L Alkaline Phosphatase 66 (38-126) U/L Total Protein 7.8 (6.3-8.2) g/dL Albumin 4.5 (3.5-5.0) g/dL Globulin 3.3 (1.7-4.1) g/dL Albumin/Globulin Ratio 1.4 (1.0-2.8) Discharge Plan Departure Patient Disposition: Home Clinical Impression: Closed trimalleolar fracture, Chronic hyponatremia Instructions: DI for Fracture Activity Restrictions/Additional Instructions: You presented today for left ankle pain and swelling. You were found to have a trimalleolar fracture. Dr. Samuel was able to reduce it in the emergency department with improved alignment although you will need to see him in the office for consultation for surgery. In the meantime remain nonweightbearing with use of crutches and leave splint in place. For pain please take ibuprofen 800 mg every 8 hours, acetaminophen 1000 mg every 6 hours. I recommend keeping the leg elevated as much as possible to avoid swelling. For severe or breakthrough pain you may use hydrocodone/acetaminophen, a narcotic pain medication. Please try to use this medication sparingly. Absolutely do not combine this medication while drinking alcohol as this could lead to . Please remember that narcotic pain medication is addictive, lethal in overdose, causes constipation and sedation. If you use this medication consistently over time, your body will become habituated to it and you will ultimately need increasing doses. In the long run, this medication will actually increase your sensitivity to pain and it does not actually address the underlying cause of pain, it only masks at temporarily. You must not drive or perform other risky behavior while on this medication. You must not combine it with alcohol or other drugs. Please only take the minimum amount needed to treat your pain. Prescriptions: New hydrocodone-acetaminophen 5-325 mg tablet 1 tab PO Q8H PRN (Reason: pain) Qty: 14 0RF No Action albuterol sulfate 90 mcg/actuation HFA aerosol inhaler 1 puff inhalation Q4-6H PRN (Reason: shortness of breath or wheezing) Qty: 8.5 3RF Combivent Respimat 20-100 mcg/actuation mist 1 - 2 puff inhalation TID Qty: 4 5RF Rx Instructions: Th fluticasone propion-salmeterol [Advair Diskus] 250-50 mcg/dose blister with device 1 inh inhalation BID Qty: 60 5RF diphenoxylate-atropine [Lomotil] 2.5-0.025 mg tablet 1 tab PO TID PRN (Reason: diarrhea) Qty: 60 5RF carvedilol 3.125 mg tablet 3.125 mg PO BID Qty: 180 1RF Rx Instructions: must administer with a meal/food ipratropium-albuterol 0.5 mg-3 mg(2.5 mg base)/3 mL solution for nebulization 3 ml inhalation 4XD Qty: 180 5RF loratadine 10 mg tablet 10 mg PO DAILY PRN (Reason: itchy eyes) Qty: 90 3RF chlorthalidone 25 mg tablet 25 mg PO DAILY Qty: 90 3RF atorvastatin 20 mg tablet 20 mg PO DAILY Referrals: Benjie Johnson MD [Primary Care Provider, Internal Medicine] Rboert Samuel MD [Physician, Orthopedic Surgery] Referral Note: trimal fx s/p reduction in ED Stand Alone Forms: Patient Portal/API
[2025-01-27] MEDS: HYDROCODONE/ACET 5/325 TABLET 1 TAB PO (14:38)
--- NOTE | 2025-01-27 15:01 | PC.NURSE ---
Pt splinted by MD Franco. Perfmarjorieno intact. Pt reports improvment in pain
== END 2025-01-27 15:03 | disposition home or self-care (01) ==
PROVIDERS: Emergency Provider Student in an Organized Health Care Education/Training Program; PCP Internal Medicine
DX: S82.852A Displaced trimalleolar fracture of left lower leg, initial encounter for closed fracture (principal); E87.1 Hypo-osmolality and hyponatremia; W18.30XA Fall on same level, unspecified, initial encounter
CPT/HCPCS: 27818; 73610; 73700; 80053; 85025; 96374; 96375; 99284; J1885; J2270

== ENCOUNTER 2025-01-30 07:07 | Day surgery (SDC) | payer MEDICARE, MEDICAID, SELFPAY ==
[2025-01-28 11:51] VITALS: BMI 39.9
[2025-01-30] VITALS (7 sets, daily range): BP systolic 107–142; BP diastolic 51–78; PULSE 83–104; RESP 12–20; TEMP 36.5–36.8; O2SAT 94–97; BMI 41.0
--- NOTE | 2025-01-30 | DI.RAD.S_ITS ---
PROCEDURE: XR ANKLE LT 2V INDICATIONS: TRIMALLEOLAR ANKLE FRACTURE TECHNIQUE: 2 spot fluoroscopic intraoperative images of the left ankle. COMPARISON: [facility], ABDIFATAH, XR ANKLE LT MIN 3V, 01/27/2025, 10:40. FINDINGS and IMPRESSION: Spot fluoroscopic intraoperative images demonstrate internal fixation of the previously seen distal tibial and fibular fractures with improved osseous alignment. Approved by: Ward Giron M.D. on 01/30/2025 at 10:54
--- NOTE | 2025-01-30 08:07 | PM.PREOP ---
Pre-operative Note Interval Note History & Physical reviewed/Exam performed by Physician: Yes Changes to H&P: No
[2025-01-30] MEDS: LACTATED RINGERS 1,000 ML 42 ML IV (08:22)
--- NOTE | 2025-01-30 08:33 | SUR.PREOP ---
Patient assisted to the bathroom, per patient request. Patient reported passing gas only, no stool or urine.
--- NOTE | 2025-01-30 08:50 | SUR.PREOP ---
Patient became diaphoretic after getting up to the bathroom. He reported that he has been diaphoretic and more short of breath since his last ETOH intake on 01/27/25. Ev BLACKBURN notified.
[2025-01-30] MEDS: CEFAZOLIN VIAL 3 GM in SODIUM CHLORIDE 0.9% 100 ML IV (09:03)
[2025-01-30] MEDS: TRANEXAMIC ACID 1,000 MG VIAL 1000 MG INJ (09:08)
--- NOTE | 2025-01-30 09:22 | SUR.OPER ---
Supine on padded OR bed, head on pillow, arms secured on padded arm boards at <90 degrees abduction, legs uncrossed, safety belt at thigh, tape over blanket over non operative lower leg, operative leg bumped and elvated per surgeon. Gel pad placed with bump under left hip. Dr Samuel and Dr Hardwick in room at time of positioning to assist, all pressure points padded and positioned.
[2025-01-30] MEDS: BUPIVACAINE 0.25% (PF) VIAL 30 ML INJ (09:31)
[2025-01-30] MEDS: ACETAMINOPHEN IV 1,000 MG/100 ML VIAL 400 MG IV (10:33)
[2025-01-30] MEDS: OXYCODONE IR 5 MG TABLET PO ×2 (11:06→12:12)
[2025-01-30] MEDS: hydrOXYzine 50 MG/ML INJ 25 MG IM (11:06)
[2025-01-30] MEDS: diazePAM 10 MG/2 ML SYRINGE IV (11:19)
--- NOTE | 2025-01-30 12:56 | P.OP_ITS ---
Operative Date/Time/Diagnoses Date of procedure: 01/30/25 Time of procedure: 12:57 Pre-op diagnosis: LEFT Ankle Fracture Dislocation Post-op diagnosis: same Procedure & Clinicians Procedure: ORIF of the LEFT Ankle Fracture Same procedure(s) as scheduled: Yes Surgeon: Robert Samuel Anesthesia Type: General Operative Notes Findings: Unstable Left ankle fracture Applied: cast(s) Estimated Blood Loss (mL): 25 Tourniquet time (min): 77 Procedure in detail: Laterality: Left Preoperative diagnosis: Unstable left ankle fracture dislocation Procedure performed: Open Reduction Internal Fixation of Ankle Fracture Postoperative diagnosis: Same Primary Surgeon: Robert Samuel MD Secondary Surgeon: Linda Hardwick DO Secondary surgeon was used throughout the entirety of the case. This operation could not have been safely performed (without compromising the technical results or length of the procedure) without the assistance of a skilled surgical a ssistant. A surgical supply assistant was medically necessary for room set up, patient positioning, draping, retraction, visualization, reduction, fixation and closure. They were essential for the success of the case. Anesthesia: General EBL: 25 ml Tourniquet: 77 minutes @ 250 mmHg Implants: [employer] screws and plates; Indication For Surgery: The patient sustained an unstable ankle fracture which required surgery to restore stability and anatomic length, alignment, and rotation. The risks, benefits, and alternatives were discussed. Risks include pain, bleeding, infection, damage to nearby structures and cartilage, lack of symptom relief, malunion, nonunion, implant complications with need for removal, need for further surgery, DVT, PE, stroke, and . Written consent was obta ined. Examination Under Anesthesia: An unstable ankle Operative Findings: Unstable left ankle fracture dislocation Procedure in Detail: The patient was met in the pre-operative hold area. Consent was verified and operative extremity was signed. The patient then met with anesthesia and was brought back to the operating room. The patient was placed supine on the operating table. A general anesthetic was administered. The extremity was then prepped and draped in the usual sterile fashion. A timeout was performed per protocol. All were in agreement and we proceeded. The lower extremity was exsanguinated and the tourniquet was raised. A 3 cm incision was placed over the medial male knowing that the fracture pattern was small and anterior. We dissected down to the bone and this medial nail fragment was displaced significantly laterally. With a closed reduction this brought the anterior medial malleolus fracture fragment much closer to alignment. The fracture was then debrided with a rongeur and curette. Irrigation cleared out the fracture fragments. There was no evidence of damage to the talus seen through the fracture fragments. With a closed reduction we are able to then use [id number] reduction x2 reduce the medial nail fragment. This was confirmed on AP and lateral fluoroscopy. Once we were happy with this reduction we then placed a K-wire perpendicular to the fracture line which made the trajectory be vertical. The location of the K-wire was confirmed on AP and lateral fluoroscopy. Happy with this location we measured, open reamed the cortex and placed a partially-threaded screw. The reduction and location of the hardware was confirmed with AP and lateral fluoroscopy. A direct lateral approach to the lateral malleolus was made. Sharp dissection was carried out distally and scissor dissection proximally. The superficial peroneal nerve was sought out but not seen during the case. The fracture site was identified and 2mm of periosteum was freed to allow for an adequate assessment of fracture reduction. Hematoma and blocks to reduction were removed from the fracture site. The fracture site was irrigated. A reduction was performed and held with a point to point clamp. A 2.7mm lag screw was placed perpendicular, compressing the fracture site nicely. A 1/3 tubular plate was placed laterally and the position was confirmed with fluoroscopy. The plate was cheated slightly posteriorly to allow for the appropriate trajectory in the case syndesmosis fixation was needed. The plate was secured with screws proximally and distally. The reduction was maintained throughout. Final images were taken. The wound was closed in a layered fashion with 2-0 in the dermis, and running nylon in the skin. Local anesthetic was placed. A sterile dressing and splint were applied. The patient was awakened and transferred to the recovery room. Postoperative Plan: Same day surgery discharge NWB with splint for 2 weeks Follow up in 2 weeks oRbert Samuel MD Complications: none Post-operative Condition: stable Disposition: PACU
== END 2025-01-30 12:30 | disposition home or self-care (01) ==
PROVIDERS: PCP Internal Medicine; Referring Provider Orthopaedic Surgery; Visit Provider Orthopaedic Surgery
PROC: (CPT 27822; principal; 2025-01-30 08:45)
DX: S82.852A Displaced trimalleolar fracture of left lower leg, initial encounter for closed fracture (principal); J44.9 Chronic obstructive pulmonary disease, unspecified; I10 Essential (primary) hypertension; E78.5 Hyperlipidemia, unspecified; E66.9 Obesity, unspecified; Z68.41 Body mass index [BMI] 40.0-44.9, adult; W01.0XXA Fall on same level from slipping, tripping and stumbling without subsequent striking against object, initial encounter; Y92.009 Unspecified place in unspecified non-institutional (private) residence as the place of occurrence of the external cause
CPT/HCPCS: 27822; 73600; 76000; C1713; J0131; J0690; J1100; J1885; J2250; J2405; J2704; J3010; J3360; J3410

== ENCOUNTER → 2025-07-02 15:59 | Outpatient (CLI) | payer MEDICARE, MEDICAID, SELFPAY ==
[2025-07-02 16:35] LABS: Hemoglobin A1C% w Est Avg Glu 4.8 % (4.0-6.0)
[2025-07-02 16:54] LABS: Blood Urea Nitrogen 18 mg/dL (9-20); Calcium 9.2 mg/dL (8.4-10.2); Carbon Dioxide 31 mmol/L (22-32); Chloride 97 mmol/L (98-107); Cholesterol 220 mg/dL (140-199); Estimated Glomerular Filt Rate > 60 mL/min (>60); Glucose 103 mg/dL (70-99); HDL Cholesterol 41 mg/dL (40-60); HEMOLYSIS < 15 (0-50); Potassium 3.6 mmol/L (3.4-5.1); Sodium 135 mmol/L (137-145); Triglycerides 389 mg/dL (35-150)
== END ==
PROVIDERS: PCP Internal Medicine; Referring Provider Internal Medicine; Visit Provider Internal Medicine
DX: R73.01 Impaired fasting glucose (principal); I10 Essential (primary) hypertension; E78.2 Mixed hyperlipidemia
CPT/HCPCS: 36415; 80048; 80061; 83036; 84450